=== PATIENT | male | born 1950 | race Caucasian/White ===

== ENCOUNTER 2022-01-04 12:42 | Outpatient (CLI) | payer MEDICARE, MEDICAID, SELFPAY ==
[2022-01-04 21:41] LABS: Albumin* 4.6 g/dL (3.3-5.0)
[2022-01-04 21:42] LABS: Potassium* 4.9 mmol/L (3.6-5.1); Sodium* 136 mmol/L (135-149)
[2022-01-04 21:44] LABS: Aspartate Amino Transferase* 23 U/L (12-35); Bilirubin Total* 0.6 mg/dL (0.1-1.5); Blood Urea Nitrogen* 16 mg/dL (7-30); Carbon Dioxide* 28 mmol/L (20-32); Cholesterol* 271 mg/dL (90-199); Creatinine* 0.8 mg/dL (0.5-1.5); Estimated Glomerular Filt Rate 95 ml/min; Total Protein* 8.4 g/dL (6.0-8.3)
[2022-01-04 21:45] LABS: Alanine Aminotransferase* 13 U/L (4-50); Alkaline Phosphatase* 63 U/L (40-150); Calcium* 10.2 mg/dL (8.4-10.6); Glucose* 96 mg/dL (60-115); HDL Cholesterol* 47 mg/dL (>=40); LDL Cholesterol Calculated 184 mg/dL (<100); Triglycerides* 200 mg/dL (40-149)
[2022-01-04 21:57] LABS: Chloride* 100 mmol/L (96-114)
[2022-01-04 22:16] LABS: PSA Screen* 1.12 ng/mL (0.10-4.00)
== END 2022-01-04 12:43 | disposition home or self-care (01) ==
PROVIDERS: PCP Family Medicine; Visit Provider Physician Assistant Medical
DX: E11.9 Type 2 diabetes mellitus without complications (principal); E78.5 Hyperlipidemia, unspecified; I10 Essential (primary) hypertension; Z80.42 Family history of malignant neoplasm of prostate
CPT/HCPCS: 80053; 80061; 84153

== ENCOUNTER 2022-07-21 14:16 | Outpatient (CLI) | payer MEDICARE, MEDICAID, SELFPAY | END 2022-07-21 14:17 | disposition home or self-care (01) | LOC: FRMREF 14:19 | PROVIDERS: PCP Physician Assistant Medical; Visit Provider Physician Assistant Medical | DX: I10 Essential (primary) hypertension (principal); E78.5 Hyperlipidemia, unspecified; E11.9 Type 2 diabetes mellitus without complications | CPT/HCPCS: 80053; 80061 ==

== ENCOUNTER 2023-07-27 08:25 | Outpatient (CLI) | payer MEDICARE, MEDICAID, SELFPAY | END 2023-07-27 08:26 | disposition home or self-care (01) | LOC: NFLDREF 07-31 08:05 | PROVIDERS: PCP Physician Assistant Medical; Referring Provider Physician Assistant Medical; Visit Provider Physician Assistant Medical | DX: E78.2 Mixed hyperlipidemia (principal); E11.9 Type 2 diabetes mellitus without complications; Z12.5 Encounter for screening for malignant neoplasm of prostate | CPT/HCPCS: 80053; 80061; G0103 ==

== ENCOUNTER 2024-03-14 07:37 | Outpatient (CLI) | payer OTHER, SELFPAY | END 2024-03-14 07:38 | disposition home or self-care (01) | LOC: NFLDREF 03-18 02:13 | PROVIDERS: PCP Physician Assistant Medical; Referring Provider Physician Assistant Medical; Visit Provider Physician Assistant Medical | DX: E11.9 Type 2 diabetes mellitus without complications (principal); E78.2 Mixed hyperlipidemia; Z12.5 Encounter for screening for malignant neoplasm of prostate | CPT/HCPCS: 80053; 80061; G0103 ==

== ENCOUNTER 2025-03-11 14:35 | Outpatient (CLI) | payer OTHER, SELFPAY | END 2025-03-11 14:36 | disposition home or self-care (01) | LOC: NFLDREF 03-17 19:00 | PROVIDERS: PCP Physician Assistant Medical; Referring Provider Physician Assistant Medical; Visit Provider Physician Assistant Medical | DX: I10 Essential (primary) hypertension (principal); E11.9 Type 2 diabetes mellitus without complications; E78.2 Mixed hyperlipidemia | CPT/HCPCS: 80053; 80061; 82043; 82570; 84443; G0103 ==